=== PATIENT | male | born 1985 | race Caucasian/White ===

== ENCOUNTER 2019-10-16 13:09 | Emergency (ER) | payer OTHER ==
[~2019-10-16] VITALS: Ht 165.1 cm; Wt 86.6 kg
[2019-10-16 13:14] VITALS: BP 105/81
== END 2019-10-16 13:48 | disposition home or self-care (01) ==
LOC: ER 13:16
DX: J06.9 Acute upper respiratory infection, unspecified (principal); E78.00 Pure hypercholesterolemia, unspecified

== ENCOUNTER 2020-01-16 00:17 | Emergency (ER) | payer OTHER ==
[~2020-01-16] VITALS: Ht 165.1 cm; Wt 63.5 kg
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
--- NOTE | 2020-01-16 00:26 | NUR ---
[employer] IS AT BEDSIDE WITH PATIENT FOR QUESTIONING.
--- NOTE | 2020-01-16 01:29 | NUR ---
BACK FROM CT. PT IS AGRESSIVE AND UNCOOPERATIVE. CONSTANTLE GETTING OUT OF THE BED AND PACING THE LEON WAY. PT REMAINED ON CLOSE SUPERVISION. WILL CONT TO MONITOR
[2020-01-16] MEDS ORDERED: LORAZEPAM INJ 2 MG/ML VIAL ONE (01:58)
[2020-01-16] MEDS ORDERED: LORAZEPAM INJ 2 MG/ML VIAL IV ONE (02:00)
[2020-01-16] MEDS ORDERED: LORAZEPAM INJ 2 MG/ML VIAL IM ONE (02:30)
--- NOTE | 2020-01-16 02:37 | NUR ---
PT RETURN FROM CT
[2020-01-16] MEDS ORDERED: TDAP [DIPH/PERTUSSIS/TET] 0.5 ML VIAL IM ONE ×2 (03:29→03:30)
--- NOTE | 2020-01-16 04:28 | NUR ---
PATIENT IS SLEEPING. EASILY AROUSABLE THROUGH TACTILE AND VERBAL STIMULI. NOT IN ANY DISTRESS. CONNECTED TO THE MONITOR. BREATHING EVENLY AND UNLABORED ON ROOM AIR.
--- NOTE | 2020-01-16 08:00 | NUR ---
Patient given written and verbal discharge instructions. Patient verbalizes understanding of instructions. Patient is ambulatory with steady gait. Refuses offer of [facility]dc placement. Patient given list of available shelters in surrounding area. Patient in proper clothing upon discharge, name band removed. All belongings with the patient.
[2020-01-16 08:03] VITALS: BP 119/71
== END 2020-01-16 08:03 | disposition home or self-care (01) ==
LOC: ER 00:17
DX: S00.12XA Contusion of left eyelid and periocular area, initial encounter (principal); S00.81XA Abrasion of other part of head, initial encounter; S20.311A Abrasion of right front wall of thorax, initial encounter; I10 Essential (primary) hypertension; F32.9 Major depressive disorder, single episode, unspecified; F17.200 Nicotine dependence, unspecified, uncomplicated; Y08.89XA Assault by other specified means, initial encounter; Y93.89 Activity, other specified; Y92.89 Other specified places as the place of occurrence of the external cause; Y99.8 Other external cause status
CPT/HCPCS: 70470; 70486; 71045; 90471; 90715; 96372; 99285; J2060

== ENCOUNTER 2021-10-03 16:04 | Emergency (ER) | payer OTHER ==
[~2021-10-03] VITALS: Ht 165.1 cm; Wt 63.5 kg
--- NOTE | 2021-10-03 16:30 | NUR ---
BIBRA[address] STREETS C/O R SIDE INGUINAL AREA PAIN 8/10 FOR WEEKS, DX HERNIA. ABDOMEN SOFT AND NON-DISTENDED. WILL CONTINUE TO MONITOR THE PATIENT.
[2021-10-03] MEDS ORDERED: ACETAMINOPHEN ES 500 MG TABLET ONE (17:19)
[2021-10-03] MEDS ORDERED: OLANZAPINE 5 MG TABLET ONE (17:20)
[2021-10-03] MEDS ORDERED: OLANZAPINE 5 MG TABLET PO ONE (17:30)
[2021-10-03] MEDS ORDERED: ACETAMINOPHEN 325 MG TABLET PO ONE (17:30)
[2021-10-03] MEDS ORDERED: TRIA15OI9 TP (17:54)
--- NOTE | 2021-10-03 18:11 | NUR ---
Patient given written and verbal discharge instructions. Patient verbalizes understanding of instructions. Patient is ambulatory with steady gait. [place] [facility]. Patient given list of available shelters in surrounding area.
[2021-10-03 18:12] VITALS: BP 131/72
== END 2021-10-03 18:12 | disposition home or self-care (01) ==
LOC: ER 16:28
DX: K40.20 Bilateral inguinal hernia, without obstruction or gangrene, not specified as recurrent (principal); I10 Essential (primary) hypertension; F32.A Depression, unspecified; F17.200 Nicotine dependence, unspecified, uncomplicated; F15.10 Other stimulant abuse, uncomplicated; F10.10 Alcohol abuse, uncomplicated; Z87.2 Personal history of diseases of the skin and subcutaneous tissue; Z59.00 Homelessness unspecified; Y90.9 Presence of alcohol in blood, level not specified

== ENCOUNTER 2021-10-20 13:55 | Emergency (ER) | payer OTHER ==
[~2021-10-20] VITALS: Ht 167.6 cm; Wt 64.4 kg
[~2021-10-20 13:55] MED LIST: TRIA15OI9 TP
--- NOTE | 2021-10-20 14:35 | NUR ---
DR MORGAN AT BEDSIDE
[2021-10-20] MEDS ORDERED: ACETAMINOPHEN ES 500 MG TABLET ONE (14:55)
[2021-10-20] MEDS ORDERED: ACETAMINOPHEN ES 500 MG TABLET PO ONE (15:00)
--- NOTE | 2021-10-20 15:00 | NUR ---
Patient discharged to home in stable condition. Written and verbal after care instructions given. Patient verbalizes understanding of instruction.
[2021-10-20 15:32] VITALS: BP 132/68
== END 2021-10-20 15:05 | disposition home or self-care (01) ==
LOC: ER 13:59
DX: K40.20 Bilateral inguinal hernia, without obstruction or gangrene, not specified as recurrent (principal); I10 Essential (primary) hypertension; F32.A Depression, unspecified; F17.200 Nicotine dependence, unspecified, uncomplicated; Z87.710 Personal history of (corrected) hypospadias; Z79.899 Other long term (current) drug therapy

== ENCOUNTER 2022-12-31 00:35 | Inpatient (IN) | payer OTHER ==
[~2022-12-31] VITALS: Ht 167.6 cm; Wt 64.4 kg
--- NOTE | 2022-12-31 00:51 | NUR ---
[facility] IS LETHARGIC, TOLD EMT HE TOOK 50TABS OF TYLENOL
[2022-12-31] MEDS ORDERED: IV NS 0.9% 1,000 ML BAG IV ONE (01:00)
--- NOTE | 2022-12-31 01:08 | NUR ---
SPOKE TO POISON CONTROL SEEKING ADVICE FOR TYLENOL OVERDOSE. RECOMMENDATION: TYLENOL, SALICYLATE, LFT, URINE TOX AND EKG. IF LFT OR TYLENOL LEVEL IS ELEVATED TO GIVEN MUCOMYST IV AND RPEAT THE LEVELS AN HOUR AFTER.
--- NOTE | 2022-12-31 01:18 | NUR ---
18G IV STARTED ON R AC. BLOOD COLLECTED AND SENT TO LAB
--- NOTE | 2022-12-31 01:18 | NUR ---
URINE COLLECTED SENT TO LAB
[2022-12-31 01:22] LABS: BASOPHILS # (AUTO) 0.2 K/uL (0.0-0.2); BASOPHILS % (AUTO) 2.6 % (0.0-2.0); EOSINOPHILS % (AUTO) 0.8 % (0.0-6.0); HEMATOCRIT 49 % (39-51); HEMOGLOBIN 16.3 g/dL (13.5-17.5); LYMPHOCYTES # (AUTO) 1.4 K/uL (0.8-4.8); LYMPHOCYTES % (AUTO) 19.5 % (20.0-44.0); MEAN CORPUSCULAR HGB CONC 33 g/dl (31.0-36.0); MEAN CORPUSCULAR VOLUME 94 fL (80-96); MONOCYTES # (AUTO) 0.6 K/uL (0.1-1.30); NEUTROPHILS # (AUTO) 5.1 K/uL (1.8-8.9); NEUTROPHILS % (AUTO) 69.1 % (43.0-81.0); PLATELET COUNT (AUTO) 220 K/uL (150-450); RED BLOOD CELL COUNT(AUTO) 5.28 MIL/uL (4.5-6.0); WHITE BLOOD COUNT (AUTO) 7.4 K/uL (4.3-11.0)
--- NOTE | 2022-12-31 01:23 | NUR ---
PT TAKEN TO CT VIA BLOSSOM
--- NOTE | 2022-12-31 01:23 | NUR ---
ACCUCHECK 84
--- NOTE | 2022-12-31 01:37 | NUR ---
PT RETURNED FROM CT
[2022-12-31 01:42] LABS: ALANINE AMINOTRANSFERASE 28 U/L (12-78); ALBUMIN 4.3 g/dL (3.4-5.0); ALKALINE PHOSPHATASE 73 U/L (46-116); ASPARTATE AMINOTRANSFERASE 18 U/L (15-37); BILIRUBIN,DIRECT 0.3 mg/dL (0.0-0.2); BILIRUBIN,TOTAL 1.6 mg/dL (0.2-1.0); CALCIUM, SERUM 9.5 mg/dL (8.5-10.1); CARBON DIOXIDE 24 mmol/L (21-32); CHLORIDE 104 mmol/L (98-107); CREATININE 1.3 mg/dL (0.6-1.3); GLUCOSE 90 mg/dL (74-106); POTASSIUM 3.2 mmol/L (3.5-5.1); SODIUM SERUM 140 mmol/L (136-145); TOTAL PROTEIN, SERUM 8.1 g/dL (6.4-8.2); UREA NITROGEN, BLOOD 11 mg/dL (7-18)
[2022-12-31 01:46] LABS: ALCOHOL, BLOOD < 3 mg/dL (0-10)
[2022-12-31 01:55] LABS: BILIRUBIN,URINE 2+ (NEGATIVE); COLOR,URINE DARK YELLOW (YELLOW); LEUKOCYTE ESTERASE ,URINE NEGATIVE (NEGATIVE); NITRITE, URINE NEGATIVE (NEGATIVE); PROTEIN,URINE 1+ mg/dl (NEGATIVE); UGLUCOSE NEGATIVE (NEGATIVE)
[2022-12-31 01:56] LABS: BACTERIA,URINE Rare /HPF (None Seen); RBC,URINE 0-2 /HPF (0-2); SQUAMOUS EPITHELIAL CELL,UR Few /HPF (None Seen); WBC,URINE 0-2 /HPF (0-3)
[2022-12-31] MEDS ORDERED: D5W IV ONE ×3 (02:00→02:30)
[2022-12-31] MEDS ORDERED: ACETYLCYSTEINE IV ONE ×3 (02:00→02:30)
[2022-12-31] MEDS ORDERED: ACETYLCYSTEINE IV 6,000 MG/30 ML VIAL IV ONE ×3 (02:08→10:00)
--- NOTE | 2022-12-31 02:16 | NUR ---
CLINICAL RE[facility] [phone]
[2022-12-31] MEDS ORDERED: ONDANSETRON HCL/PF 4 MG/2 ML VIAL IV ONE (03:00)
--- NOTE | 2022-12-31 03:15 | NUR ---
DR BARROW ON THE PHONE LYN LENNON AT [facility]
[2022-12-31] MEDS ORDERED: METOCLOPRAMIDE HCL 10 MG/2 ML VIAL IV ONE (03:30)
[2022-12-31] MEDS ORDERED: METOCLOPRAMIDE HCL 10 MG/2 ML VIAL ONE (03:44)
--- NOTE | 2022-12-31 05:40 | NUR ---
SPOKE WITH POISON CONTROL. THEY STATED TO CONTINUE ACETYLCYSTEINE UNTIL WE RECIEVE NEGATIVE TYLENOL LEVEL AND LFTs STAY AT A NORMAL LEVEL.
[2022-12-31] MEDS ORDERED: LORAZEPAM INJ 2 MG/ML VIAL IV PRN (06:00)
[2022-12-31] MEDS ORDERED: ONDANSETRON HCL/PF 4 MG/2 ML VIAL IVP PRN (06:00)
[2022-12-31] MEDS ORDERED: Z GUARD REMEDY 4 OZ OINT TP PRN (06:00)
--- NOTE | 2022-12-31 07:32 | NUR ---
PT RESTING COMFORTABLY IN BED, VITALS ARE WITHIN NORMAL LIMITS.
--- NOTE | 2022-12-31 07:40 | NUR ---
REPORT GIVEN TO CHARLOTTE MALONE FOR GERALDINE.Patient is resting comfortably in bed with eyes closed. Easily aroused. VSS
--- NOTE | 2022-12-31 07:47 | NUR ---
PT TAKEN TO TELE FLOOR WITH ACLS PROTOCOLS IN PLACE.
[2022-12-31 08:00] VITALS: BP 111/80
--- NOTE | 2022-12-31 08:40 | NUR ---
PATIENT ARRIVED FROM ER VIA GURNEY. A/O X1-2 CONFUSED DUE TO TYLENOL OVERDOSE. PATIENT IS ON ROOM AIR. IV ACCESS RAC GAUGE #20 FLUSHING AND INTACT. PATIENT HAS A SITTER. ALL SAFETY PRECAUTIONS IMPLEMENTED. WILL MONITOR THE PATIENT THROUGHOUT THE SHIFT.
[2022-12-31] MEDS: PANTOPRAZOLE 40 MG VIAL IV SCH (09:03)
[2022-12-31] MEDS: IV NS 0.9% 1,000 ML IV PRN (09:03)
[2022-12-31 09:44] LABS: ALBUMIN 3.4 g/dL (3.4-5.0); BILIRUBIN,DIRECT 0.3 mg/dL (0.0-0.2); BILIRUBIN,TOTAL 1.7 mg/dL (0.2-1.0); TOTAL PROTEIN, SERUM 6.8 g/dL (6.4-8.2)
[2022-12-31 09:59] LABS: CALCIUM, SERUM 8.8 mg/dL (8.5-10.1); CREATININE 1.1 mg/dL (0.6-1.3); POTASSIUM 3.7 mmol/L (3.5-5.1)
[2022-12-31] MEDS ORDERED: POTASSIUM CHLORIDE 20 MEQ POWDER PACKET PO ONE (10:00)
--- NOTE | 2022-12-31 10:06 | NUR ---
relayed to sima holbrook lft/protime level and ordered restart mucomysr drip per protocol.pharmacy made aware.
--- NOTE | 2022-12-31 10:27 | NUR ---
spoke with poison cotrol c/o LYNN, pt case number is [id number],relayed latest LFT/protime level and pending tylenol level,ok to restart mucomyst drip until the tylenol level is undetected.
--- NOTE | 2022-12-31 10:30 | NUR ---
PER PHARMACIST JOE she also spoke with poison control and will start the drip per protocol,will repeat tylenol level at 2am.primary rn made aware.
[2022-12-31] MEDS ORDERED: ACETYLCYSTEINE IV SCH (11:00)
[2022-12-31] MEDS ORDERED: D5W IV SCH (11:00)
[2022-12-31 12:00] VITALS: BP 102/70
[2022-12-31 16:00] VITALS: BP 104/62
[2022-12-31 17:13] LABS: ALBUMIN 3.2 g/dL (3.4-5.0); BILIRUBIN,DIRECT 0.3 mg/dL (0.0-0.2); BILIRUBIN,TOTAL 1.8 mg/dL (0.2-1.0); TOTAL PROTEIN, SERUM 6.4 g/dL (6.4-8.2)
--- NOTE | 2022-12-31 19:37 | NUR ---
PATIENT IN BED A/OX3 CALM AND COOPERATIVE ON ROOM AIR WITH SITTER. ALL SAFETY PRECAUTIONS IMPLEMENTED. ALREADY INDORSED TO THE PM SHIFT NURSE.
--- NOTE | 2022-12-31 19:40 | NUR ---
RN NOTE Received pt in bed, alert, awake, oriented x3, verbally responsive. Denies pain or dicomfort at this time. Pt on room air, well willam, no sob, nad noted. Pt attached to external school lunch monitor, reading NSR at this time. PIV access on RAC #20G currently infusing Mucomyst at 64.375ml/hr, well willam. Pt with 1:1 sitter at bedside. Safety precaution implemented at all times. Will continue plan of care.
[2022-12-31 20:00] VITALS: BP 101/67
--- NOTE | 2022-12-31 20:10 | NUR ---
RN NOTE Notified and asked ADONIS Munguia regarding order for lab LFT (AST/ALT) for 01/01/23 0200 before Mucomyst dose at 0300, per ADONIS Joiner no need for LFT at 0200, and to refer to Acetaminophen level before administering due dose. Noted
[2023-01-01] VITALS: BP 99/66
--- NOTE | 2023-01-01 02:30 | NUR ---
RN NOTE Acetaminophen level 2, notified ADONIS Munguia, per ADONIS Joiner continue to administer antidote Mucomyst as ordered.
[2023-01-01] MEDS ORDERED: ACETYLCYSTEINE IV SCH ×2 (03:00→19:00)
[2023-01-01] MEDS ORDERED: D5W IV SCH ×2 (03:00→19:00)
--- NOTE | 2023-01-01 03:50 | NUR ---
RN NOTE Spoke with Daniel from poison control and provided updates, per Daniel, nurse to call poison control once Acetaminophen, AST/ALT level are available in the morning. Noted and will communicate to incoming shift nurse. Poison control number #
[2023-01-01 04:00] VITALS: BP 103/65
[2023-01-01] MEDS: IV NS 0.9% 1,000 ML IV PRN (05:34)
--- NOTE | 2023-01-01 07:05 | NUR ---
RN NOTE Received pt in bed, asleep at this time, easily arousable. No evidence of pain or dicomfort at this time. Pt on room air, well willam, no sob, nad noted. Pt attached to external monitoring analyst, reading NSR at this time. PIV access on R hand #20G currently infusing Mucomyst at 64.375ml/hr, NS at 100ml infusing to RAC #20G well willam, dressing CDI. Pt with 1:1 sitter at bedside. Safety precaution implemented at all times. Endorsed to morning shift nurse for continuity of care. .
[2023-01-01 07:09] LABS: BASOPHILS % (AUTO) 0.5 % (0.0-2.0); EOSINOPHILS % (AUTO) 2.1 % (0.0-6.0); HEMATOCRIT 42 % (39-51); HEMOGLOBIN 14.4 g/dL (13.5-17.5); LYMPHOCYTES # (AUTO) 2.1 K/uL (0.8-4.8); LYMPHOCYTES % (AUTO) 42.1 % (20.0-44.0); MEAN CORPUSCULAR HGB CONC 34 g/dl (31.0-36.0); MEAN CORPUSCULAR VOLUME 91 fL (80-96); MONOCYTES # (AUTO) 0.3 K/uL (0.1-1.30); NEUTROPHILS # (AUTO) 2.4 K/uL (1.8-8.9); NEUTROPHILS % (AUTO) 49.3 % (43.0-81.0); PLATELET COUNT (AUTO) 198 K/uL (150-450); RED BLOOD CELL COUNT(AUTO) 4.63 MIL/uL (4.5-6.0); WHITE BLOOD COUNT (AUTO) 4.9 K/uL (4.3-11.0)
--- NOTE | 2023-01-01 07:10 | NUR ---
RN NOTE Addendum: No verbalization of suicide ideation noted during the shift, pt closely monitored for safety, on 1:1 sitter at all times.
--- NOTE | 2023-01-01 07:43 | NUR ---
CHIEF CLINICAL OFFICER OPENING NOTE RECEIVED PATIENT IN BED, ASLEEP WITH SITTER AT BEDSIDE. ON ROOM AIR WITH NO S/S OF SOB OR RESPIRATORY DISTRESS, BREATHING EVEN AND UNLABORED. ON TELE MONITOR. IV ACCESS AT R HAND 20G PATENT AND INTACT, AND RAC 20 G, PATENT AND INTACT WITH NS RUNNING AT 100 ML/HR. SAFETY PRECAUTIONS IN PLACE WITH BED IN LOWEST LOCKED POSITION, SIDE RAILS UP X2, AND CALL LIGHT AND BEDSIDE TABLE WITHIN REACH. WILL CONTINUE TO MONITOR.
[2023-01-01 07:49] LABS: BILIRUBIN,DIRECT 0.2 mg/dL (0.0-0.2); BILIRUBIN,TOTAL 0.7 mg/dL (0.2-1.0); CALCIUM, SERUM 8.7 mg/dL (8.5-10.1); MAGNESIUM 1.8 mg/dL (1.8-2.4); PHOSPHORUS 3.5 mg/dL (2.5-4.9); POTASSIUM 3.5 mmol/L (3.5-5.1)
--- NOTE | 2023-01-01 07:59 | NUR ---
ASKED PATIENT WHETHER HE HAD THOUGHTS OF HURTING/KILLING HIMSELF, PATIENT REPLIED HE DID NOT KNOW.
[2023-01-01 08:00] VITALS: BP 104/68
[2023-01-01] MEDS: PANTOPRAZOLE 40 MG VIAL IV SCH (08:31)
--- NOTE | 2023-01-01 08:47 | NUR ---
WOUND CARE CONSULT: PT IS INDEPENDENT WITH BED MOBILITY AND CONTINENT AT THIS TIME. DRY SKIN NOTED TO ARMS AND PSORIATIC PATCHES ON ARMS AND BODY, PRESENT ON ADMISSION. DISCUSSED SKIN PROTECTION WITH NURSING STAFF. MD IN AGREEMENT WITH PLAN OF CARE.
[2023-01-01] MEDS ORDERED: MINERAL OIL/PETROL OINT 396 GM JAR TP SCH (09:00)
--- NOTE | 2023-01-01 09:59 | NUR ---
CONTACTED POISON CONTROL TO UPDATE ON LABS ACETAMINOPHEN <10 AST 7 ALT 21. MARBLE CARVER STATED THAT ACEDOTE BE DISCONTINUED.
--- NOTE | 2023-01-01 11:54 | NUR ---
"SW Consult: JOSHUA consult requested for patient possible homelessness. Patient brought to the hospital due to Tylenol overdose. Patient was cooperative with this procedure writer. He was alert and oriented x3. Patient stated he was brought to the hospital because of a suicide attempt. Patient reported that he has been homeless and has been living on the streets at different locations. Patient has no supportive contact. He stated that this was his first attempt. He reported he has been diagnosed with depression and has been on medications. He stated that he feels that he is underdiagnosed and stated that he has been hearing voices and the voices are telling him to kill himself. Patient denied visual hallucinations. Patient reported that he currently has suicidal thoughts but no plan. Patient denies homicidal ideation. SW offered to send clinicals to [facility] and he was open to this. However, he stated if he does not get accepted he would want to be discharged to the streets. Patient was accepting of homeless resources. JOSHUA placed homeless waiver form in the chart. DC PLAN: JOSHUA sent clinicals to Gilberto from [facility] or pt will be wanting to be discharge to the streets. JOSHUA notified CM. Shelters: [facility] Provider: [facility] [place] Address: [address] [place] [address], [address] # of Beds: 47 Population Served: [facility] 6 | [facility] Linda Victoria Mcintosh Provider: [facility] Address: [address], [address] # of Beds: 66 Population Served: [facility] Contently Mcintosh Provider: First to Serve Address: [address] [facility], [address] # of Beds: 56 Population Served: [facility] [place] Provider: [facility] Address: [address] [facility], [address] # of Beds: 49 Population Served: [facility] 8 | [facility] Provider: First to Serve Address: [address] [facility], [address] # of Beds: 37 Population Served: [facility]: [facility] [address] [address] [place] ; [facility] [address] [address] [facility] ; [facility] [address] [place] . Food Resources: [place] [facility] at [facility]- [address] [place]; Meet Each Need with Dignity (REGENC[facility] MERIDIAN) [address] [facility] Center[facility]idelina Cochrane; [facility] [address] [facility] [facility]; [facility] [address] [place] [address] [place]. Mental Health resources provided: [facility] [address] [place], [place] [phone] ; [facility] [address] [facility] [address], [place], [place] [phone] ; [facility] [address] [facility] [place] [address] ; [facility] [address] [place], [place] [phone] Healthcare Clinics: [facility] [address], [address] [place]. [place] ; [facility] [address] [facility] [address] [place] [address]; [facility] [address] [facility]. [place] [phone] Counseling--Outpatient [facility] [address] [facility], [place] [address] (Specializes in in-depth psychotherapy for emotional distress: anxiety, depression, interpersonal conflicts, life transitions, childhood abuse) [facility] [address] [place] [address] (Assist with solving problem marital difficulties, separation & divorce, aging parents, & grief, chronic & terminal illness) [facility] [address] [place] [address] (Deal with loss & grief, anxiety, marital difficulties) Homebound/Mental Health Services [address] [facility], [address] [place] [address] (Provide in-home mental services to people who are incapable of leaving their homes) [facility] of the Elderly Senior Service/Resource Center [address] [place], [place] [phone] [facility] [address] [place] [address] PSYCHIATRIC OUTPATIENT SERVICES [facility] Partial Hospitalization and Intensive Outpatient Program (Managed Care and Prospect Only)[address] [address]. [facility] [phone] [facility] Partial Hospitalization and Outpatient [id number] [place], [place] [phone] [facility] [id number] [facility]. [address] [place], [place] [phone] [facility] Partial Hospitalization and Outpatient [id number] [place], [phone] Substance Abuse resources provided included: [facility] Substance Abuse Self-Helpline ([facility]) ; [facility]LP [address] [facility]. [place] [phone] ; [facility] [address] [facility] [address] ; [facility] [address] [address] vd[facility] [address] ; [facility] [address] [facility] [address] ; [facility] [address] [facility] [address] ; [facility] [address] [facility] [phone] ; [facility] Abuse Helpl[facility] ; [facility] ; [facility] [place]; [facility]; [facility] [place]; [facility] Finn Rodriguezkelby; [facility] [place]; [facility] [place]; [facility] [place]; [facility]. Jeremiah Lopez; Alcoholics Anonymous -SFV; Io-Srqy-Aejbapd ; Marijuana Anonymous -[facility]; Narcotics Anonymous www.na.org;"
--- NOTE | 2023-01-01 12:07 | NUR ---
Referral: JOSHUA sent packet to Gilberto from [facility] for review ([phone]).
--- NOTE | 2023-01-01 12:10 | NUR ---
patient seen by dr. ortiz not cleared yet per psyche ,sima holbrook notified.
[2023-01-01 12:55] LABS: ALBUMIN 3.2 g/dL (3.4-5.0); BILIRUBIN,DIRECT 0.2 mg/dL (0.0-0.2); BILIRUBIN,TOTAL 0.6 mg/dL (0.2-1.0); TOTAL PROTEIN, SERUM 6.3 g/dL (6.4-8.2)
[2023-01-01] MEDS ORDERED: risperiDONE-M 0.5 MG TAB.RAPDIS PO SCH (13:00)
--- NOTE | 2023-01-01 15:40 | NUR ---
Facility Contact: JOSHUA received a call from Aubrie ([phone]) who stated pt is accepted at [facility] located at [address] [place] [address] in [place] [address]. Report needs to be called at ([phone]) and arrange transportation. Accepted by Dr. Vaz. JOSHUA notified DARRION Maki and [facility] intake.
--- NOTE | 2023-01-01 16:13 | NUR ---
pt. agreed to go to [facility] voluntary admission.
--- NOTE | 2023-01-01 16:44 | NUR ---
PATIENT PICKED UP IN STABLE CONDITION BY AMBULANCE.
[2023-01-01 16:45] VITALS: BP 107/59
--- NOTE | 2023-01-01 16:46 | NUR ---
REPORT GIVEN TO ALEJANDRO AT [facility].
== END 2023-01-01 16:54 | DRG 817 ==
LOC: ER 00:37 → TELE1 06:38 → MEDSG1 01-01 10:22
PROVIDERS: ADMIT Nurse Practitioner Acute Care; ATTEND Nurse Practitioner Acute Care
DX: T39.1X2A Poisoning by 4-Aminophenol derivatives, intentional self-harm, initial encounter (principal); R45.851 Suicidal ideations; E78.5 Hyperlipidemia, unspecified; E80.6 Other disorders of bilirubin metabolism; F32.A Depression, unspecified; I10 Essential (primary) hypertension; L40.9 Psoriasis, unspecified; Z59.00 Homelessness unspecified; Z87.891 Personal history of nicotine dependence; Z20.822 Contact with and (suspected) exposure to COVID-19; K40.90 Unilateral inguinal hernia, without obstruction or gangrene, not specified as recurrent; F20.9 Schizophrenia, unspecified; Y92.89 Other specified places as the place of occurrence of the external cause; F15.90 Other stimulant use, unspecified, uncomplicated
CPT/HCPCS: 36415; 70450-TC; 71045-TC; 80048-TC; 80076-TC; 81001; 82962-TC; 83735-TC; 84100-TC; 84484-TC; 85025-TC; 85610-TC; 87081-TC; A4223; C9113; G0378; G0480; J0132; J2405; J2765; J7030; J7060; J7070

== ENCOUNTER 2025-06-28 02:36 | Emergency (ER) | payer MEDICAID, OTHER ==
[~2025-06-28] VITALS: Ht 165.1 cm; Wt 63.5 kg
[2025-06-28] MEDS ORDERED: ACET-3102 PO (03:00)
[2025-06-28] MEDS ORDERED: IBUP-2314 PO (03:00)
[2025-06-28] MEDS ORDERED: DOXY-326 PO (03:00)
[2025-06-28] MEDS ORDERED: ACETAMINOPHEN ES 500 MG TABLET ONE (03:01)
[2025-06-28] MEDS ORDERED: CEFTRIAXONE 500 MG VIAL ONE (03:01)
[2025-06-28] MEDS ORDERED: NAPROXEN 250 MG TABLET ONE (03:02)
[2025-06-28] MEDS ORDERED: DOXYCYCLINE HYCLATE (100 MG) 100 MG TABLET ONE (03:02)
[2025-06-28] MEDS ORDERED: LIDOCAINE /MPF 1% VIAL 5 ML VIAL ONE (03:05)
[2025-06-28] MEDS: ACETAMINOPHEN ES 500 MG TABLET PO ONE (03:06)
[2025-06-28] MEDS: CEFTRIAXONE 500 MG VIAL IM ONE (03:06)
[2025-06-28] MEDS: DOXYCYCLINE HYCLATE (100 MG) 100 MG TABLET PO ONE (03:06)
[2025-06-28] MEDS: NAPROXEN 250 MG TABLET PO ONE (03:06)
[2025-06-28 03:43] VITALS: BP 120/78; TEMP 97.6; O2SAT 99
[2025-06-28 05:05] LABS: APPEARANCE,URINE CLOUDY (CLEAR); BLOOD, URINE TRACE-INTA Ery/uL (NEGATIVE); LEUKOCYTE ESTERASE ,URINE 1+ (NEGATIVE); NITRITE, URINE NEGATIVE (NEGATIVE); UGLUCOSE NEGATIVE (NEGATIVE)
[2025-06-28 05:19] LABS: ADD URINE CULTURE YES; SQUAMOUS EPITHELIAL CELL,UR Rare /HPF (None Seen)
[2025-06-28 14:54] LABS: HIV-1/2 ANTIBODY NON REACTIVE (NONREACTIVE)
[2025-06-30 06:07] LABS: CHLAMYDIA TRACHOMATIS NAA Negative (Negative); NEISSERIA GONORRHOEAE NAA Negative (Negative)
== END 2025-06-28 03:45 | disposition home or self-care (01) ==
LOC: ER 02:38
DX: K40.90 Unilateral inguinal hernia, without obstruction or gangrene, not specified as recurrent (principal); I10 Essential (primary) hypertension; F19.10 Other psychoactive substance abuse, uncomplicated; F17.200 Nicotine dependence, unspecified, uncomplicated; Z59.00 Homelessness unspecified; Z79.899 Other long term (current) drug therapy
CPT/HCPCS: 99284; 96372; 87086; 81001; 36415; 87806; 87491; 87591; J0696; J3490